=== PATIENT | female | born 1995 | race Caucasian/White ===

== ENCOUNTER 2019-11-08 13:00 | Emergency (ER) | payer OTHER ==
[~2019-11-08] VITALS: Ht 162.6 cm; Wt 56.7 kg
[2019-11-08 13:01] VITALS: Ht 162.6 cm; Wt 56.7 kg
[2019-11-08 14:20] VITALS: BP 106/66
== END 2019-11-08 14:20 | disposition home or self-care (01) ==
LOC: ED 13:00
DX: S83.015A Lateral dislocation of left patella, initial encounter (principal); E11.9 Type 2 diabetes mellitus without complications; X58.XXXA Exposure to other specified factors, initial encounter; Y93.89 Activity, other specified; Y92.89 Other specified places as the place of occurrence of the external cause; Y99.8 Other external cause status
CPT/HCPCS: J7030; Q0092